=== PATIENT | male | born 1980 | race Caucasian/White ===

== ENCOUNTER 2024-06-16 12:10 | Emergency (ER) | payer OTHER ==
[~2024-06-16] VITALS: Ht 172.7 cm; Wt 75.0 kg
[2024-06-16 12:20] VITALS: BP 142/106; PULSE 115; RESP 16; TEMP 98.2; O2SAT 99
[2024-06-16] MEDS ORDERED: KETOROLAC 15MG/ML VIAL IM ONE (14:00)
[2024-06-16] MEDS ORDERED: LIDO700A15 TP (14:19)
[2024-06-16] MEDS ORDERED: NAPR-1176 MT (14:19)
== END 2024-06-16 16:07 | disposition home or self-care (01) ==
LOC: ER 12:10
DX: M79.672 Pain in left foot (principal); M79.605 Pain in left leg
CPT/HCPCS: 73590; 73630; 99284